=== PATIENT | male | born 1995 | race Caucasian/White ===

== ENCOUNTER 2018-04-08 16:55 | Emergency (ER) | payer BC ==
[~2018-04-08] VITALS: Ht 180.3 cm; Wt 76.2 kg
[~2018-04-08 16:55] MED LIST: AMOXICILLIN500 MG PO; FLONASE 0.05% 121 EA NAS; TYLENOL W/CODE480 ML PO; ZYRTEC10 MG PO
== END 2018-04-08 18:20 | disposition home or self-care (01) ==
LOC: ED 16:55
DX: G43.909 Migraine, unspecified, not intractable, without status migrainosus (principal)

== ENCOUNTER 2018-07-14 17:13 | Emergency (ER) | payer OTHER, BC ==
[~2018-07-14] VITALS: Ht 180.3 cm; Wt 72.6 kg
[2018-07-14] MEDS ORDERED: ROBAXIN500 M1 PO (18:33)
[2018-07-14] MEDS ORDERED: IBUPROFEN600 MG PO (18:33)
== END 2018-07-14 19:48 | disposition home or self-care (01) ==
LOC: ED 17:13
DX: S33.5XXA Sprain of ligaments of lumbar spine, initial encounter (principal); M62.830 Muscle spasm of back; V49.88XA Car occupant (driver) (passenger) injured in other specified transport accidents, initial encounter; Y93.89 Activity, other specified; Y92.413 State road as the place of occurrence of the external cause; Y99.9 Unspecified external cause status

== ENCOUNTER 2022-03-16 06:22 | Emergency (ER) | payer SELFPAY ==
[~2022-03-16] VITALS: Ht 180.3 cm; Wt 77.1 kg
[~2022-03-16 06:22] MED LIST changes: +IBUPROFEN600 MG PO; +ROBAXIN500 M1 PO
[2022-03-16] MEDS ORDERED: ONDANSETRON4 MG SL (08:14)
== END 2022-03-16 08:18 | disposition home or self-care (01) ==
LOC: ED 06:22
DX: G43.909 Migraine, unspecified, not intractable, without status migrainosus (principal)